=== PATIENT | female | born 2005 | race Two or more races ===

== ENCOUNTER 2025-08-13 17:19 | Observation (INO) | payer MEDICAID, SELFPAY ==
[2025-08-13] VITALS (28 sets, daily range): BP systolic 121; BP diastolic 80; PULSE 76–95; RESP 20–98; TEMP 36.9; O2SAT 94–100; BMI 28.8
[2025-08-13 18:12] LABS: ROM Kit Exp Date# 01/18/28; ROM Kit Lot # 58104371; ROM Swab Mixed By: ASTOA7; Swb Mxed in Solvent 1 min? Yes
[2025-08-13 18:13] LABS: Rupture of Fetal Membranes Negative (Negative)
== END 2025-08-13 20:10 | disposition home or self-care (01) ==
PROVIDERS: Admitting Provider Obstetrics & Gynecology; Visit Provider Obstetrics & Gynecology
DX: O47.1 False labor at or after 37 completed weeks of gestation (principal); Z3A.39 39 weeks gestation of pregnancy
CPT/HCPCS: 59025; 59899; 84112

== ENCOUNTER 2025-08-18 23:46 | Inpatient (IN) | payer MEDICAID, SELFPAY ==
[2025-08-18 23:53] VITALS: BP 122/78; PULSE 112; RESP 18; RESP 98; TEMP 36.7; BMI 26.9
[2025-08-19] VITALS (137 sets, daily range): BP systolic 86–166; BP diastolic 50–88; PULSE 57–132; RESP 15–20; TEMP 36.6–37.2; O2SAT 82–100; BMI 26.9
--- NOTE | 2025-08-19 00:30 | XR_ITS ---
Examination: Complete OB ultrasound greater than 14 weeks Date and time of exam: August 19, 2025, 0059 hours INDICATIONS: Labor evaluation Findings: Viable intrauterine single fetus with single amniotic sac presentation cephalic Cardiac motion 137 bpm Placenta anterior maternal right grade 3 Three-vessel umbilical cord Amniotic fluid index 1.8 cm spine anterior. Cervix 3.7 cm Ovaries obscured by the fetus. Composite estimated gestational age based on BPD, head circumference, abdominal circumference, femur length is 39 weeks 5 days Estimated weight 3897.6 g. Survey of intracranial anatomy, spinal anatomy, abdominal anatomy, four-chamber heart performed with no abnormalities identified. Impression: Viable intrauterine gestation in cephalic presentation.
[2025-08-19] MEDS: RINGERS LACTATED 1000 ML 1,000 ML 100 ML IV ×4 (00:46→11:51)
[2025-08-19 01:04] LABS: Basophils # (Auto) 0.0 Thou/mm3 (0.0-0.2); Basophils % (Auto) 0 % (0-2.5); Eosinophils # (Auto) 0.1 Thou/mm3 (0.0-0.5); Eosinophils % (Auto) 1 % (0-10); Hematocrit 38.5 % (36.0-46.0); Hemoglobin 12.9 g/dL (12.0-16.0); Immature Granulocytes Auto 0.10 Thou/mm3 (0.00-0.00); Lymphocytes # (Auto) 2.1 Thou/mm3 (1.0-4.8); Lymphocytes % (Auto) 22 % (10-50); Mean Corpuscular HGB Conc 33.5 g/dl (31.0-37.0); Mean Corpuscular Hemoglobin 29.7 pg (25.0-35.0); Mean Corpuscular Volume 89 fL (80-100); Monocytes # (Auto) 0.6 Thou/mm3 (0.0-0.8); Monocytes % (Auto) 6 % (0-12); Neutrophils # (Auto) 6.8 Thou/mm3 (1.8-7.7); Neutrophils % (Auto) 70 % (37-80); Nucleated Red Blood Cell # 0.00 Thou/mm3 (0.00-0.00); Nucleated Red Blood Cell % 0 /100 WBC (0); Platelet Count 192 Thou/mm3 (140-440); RDW Standard Deviation 46.1 fL (36.4-46.3); Red Blood Count 4.35 Miln/mm3 (4.00-5.20); White Blood Count 9.6 Thou/mm3 (3.6-11.0)
[2025-08-19 01:44] LABS: Syphilis Nonreactive (Nonreactive)
--- NOTE | 2025-08-19 02:28 | PRELIM_ITS ---
Obstetric ultrasound with Doppler. August 19, 2025 0059 hours Clinical history: No records Comparison: None available at the time of this report. Findings: There is a gravid uterus with a live fetus in cephalic presentation of mean gestational age 39 weeks and 5 days (by biometry). cardiac activity is present at a heart rate of 137 beats per minute. The placenta is anterior to the maternal right in location, maturity grade 3. There is no evidence of placenta previa or retroplacental hemorrhage. There is oligohydramnios (GINI = 1.8 cm). Estimated weight is 3898 grams. No abnormalities by Doppler. The cervix measures 3.7 cm, closed. Impression: Gravid uterus with a single live fetus in cephalic presentation of mean gestational age 39 weeks 5 days. Oligohydramnios. Please, correlate clinically. Report Electronically Signed By: Dutch Jang 08/19/2025 2:27:18 AM [EST]
[2025-08-19] MEDS: fentaNYL CIT INJ 50 mCg/ML AMP 2ML 100 MCG IVP ×2 (04:00→05:18)
--- NOTE | 2025-08-19 08:36 | ESHP_ITS ---
Documentation for date of: 08/19/25 OB Labor/Induct. HPI History of Present Illness Chief complaint: leaking 2324 : 1 Para: 0 Term pregnancies: 0 pregnancies: 0 Living children: 0 History of Abortions: Spontaneous and Elective: 0 History of Vaginal deliveries: 0 History of sections: No History of : No Date of last menstrual period: 11/08/24 PRUDENCIO: 08/15/25 Gestational Age (weeks): 40 Gestational Age (days): 4 Gestational age based on last menstrual period: 40 Indication for induction: post dates History of present illness: 20-year-old 1 para 0 admitted with complaints of leaking fluid since 2324 and contractions. Patient been followed at [facility] clinic with Dr. Oakes. She reports that she has not had any problems with . Last period November 08, 2024. Estimated due date August 15, 2025. Patient has a history of penicillin she told her allergies she gets a rash. She had her appendix out in 2021. History of oligohydramnios with . Patient is O+, antibody screen negative, RPR nonreactive, rubella, hepatitis B negative, hep C negative, HIV negative, her 1 hour glucose was negative. GBS negative. Denies social habits. And denies existence of chronic illness. History of Present Dating criteria: LMP confirmed by 1st trimester US Adequate Care: Yes Ultrasounds: normal mid trimester US Obstetrical complications: none Medical complications: none Labs Labs: Positive: Rubella Titre, Negative: RPR, Hepatitis B, HIV and Group Beta Strep and Unknown: Chlamydia, Gonorrhea, Herpes Type 1, Herpes Type 2 and Covid-19 Review of Systems Review of Systems Systems Reviewed: All systems reviewed, normal except as documented Past Medical History Surgical History SURGICAL: Negative Section Meds Home Medications and Allergies Home Medications ?Medication ?Instructions ?Recorded ?Confirmed ?Type No Known Home Medications 08/19/2507/06 History Allergies Allergy/AdvReac Type Severity Reaction Status Date / Time Penicillins Allergy Rash Verified 08/19/25 00:44 OB Exam Physical Exam Vital signs: Temp Pulse Resp BP Pulse Ox O2 Del Method 98.7 F 64 18 101/56 L 97 Room Air 08/19/25 04:05 08/19/25 08:35 08/18/25 23:53 08/19/25 08:35 08/19/25 08:32 08/19/25 01:37 Narrative: Alert and oriented. Normal heart rate and rhythm. Lungs clear no wheezes. Gravid abdomen. Gynecoid pelvis. Estimated weight 7 pounds 8 ounces. Vaginal exam admission was 350% -3 vertex. heart rate category 1 with accelerations and moderate variability. Had a complete OB that showed vertex. GINI 1 point. Detailed Labor and Delivery Exam Dilation (cm): 3 Effacement (%): 50 Cervix position: mid station: -3 Consistency: soft Presentation: Vertex Cervical ripeness score: 6 Membranes: ruptured Amniotic fluid: clear Baseline heart rate: 134 monitor accelerations: 15x15 MCC variability: Moderate (11-25) Contraction frequency (min): 2-4 Contraction duration (sec): 60 Tachysystole: No Contraction intensity: Moderate OB Results Labs 08/19/25 00:33 Labs: Short CBC 08/19/25 Range/Units 00:33 WBC 9.6 (3.6-11.0) Thou/mm3 Hgb 12.9 (12.0-16.0) g/dL Hct 38.5 (36.0-46.0) % Plt Count 192 (140-440) Thou/mm3 OB Assessment & Plan Assessment and Plan (1) Normal labor and delivery: Status: Acute Additional Plan Induction method: none Plan: augmentation, anticipate NVD and consult MD leblanc
[2025-08-19] MEDS: ONDANSETRON INJ 2 MG/ML INJ 2 ML 4 MG IVP (08:47)
[2025-08-19] MEDS: OXYTOCIN in NS 30 units 30 UNIT/500 ML BAG IV (09:37)
[2025-08-19 09:39] LABS: Chlamydia trachomatis PCR Negative (Not Detect); Neisseria Gonorrhoeae DNA PCR Negative (Not Detect); Trichomonas Negative (Negative)
--- NOTE | 2025-08-19 13:15 | ESPR_ITS ---
Documentation for date of: 08/19/25 OB Labor Progress Note Pain Control Pain control: tolerating well and epidural Comments: The patient is a 20-year-old 1 P0 with all care uncomplicated with Dr. Oakes at term who presented with ruptured membranes around 2300 last night. She was admitted this morning. The patient had labor epidural placed she is resting comfortably she is ranjana every 2 to 3 minutes she is on 5 milliu nits of Pitocin. Baby is reactive category 1. Patient's last exam by the RN was about 30 minutes ago she is 590 and -2. Pelvic Exam Dilation (cm): 5 Effacement (%): 90 station: -2 Amniotic membrane status: Leaking Contractions Monitor mode: Internal Contraction frequency: 1.5-3 Contraction pattern: Tetanic Contraction intensity: Strong Status status: Category l Assessment and Plan Pitocin rate (mU/min): 5 Assessment: induction ongoing Plan OB labor note: continuous present management
[2025-08-19] MEDS: MINERAL OIL 30 ML UDC TOP (15:20)
[2025-08-19] MEDS: OXYTOCIN in NS 20 units 20 UNIT/1,000 ML BAG 125 UNIT IV (15:25)
[2025-08-19] MEDS: BENZO/LANO/ALOE (Dermoplast) 60 GM CAN 1 SPRAY TOP (17:01)
[2025-08-19] MEDS: IBUPROFEN TAB 400 MG TABLET 800 MG PO (17:02)
--- NOTE | 2025-08-19 20:20 | PD.LDDELS ---
Data ([place]) Data Hx Section: No Maternal Blood Type: O Pos Rubella Titre: Positive RPR: Non-reactive Labs: Negative: RPR, Hepatitis B, HIV, Chlamydia, Gonorrhea and Group Beta Strep : 1 Term: 0 : 0 Livin Abortions: Spontaneous & Theraputic: 0 Delivery Data ([place]eller) Labor Data Initiation of labor: Augmentation Induction/Augmentation Agent: Pitocin ROM date: 08/18/25 ROM time: 11:27 Amniotic membrane rupture type: Spontaneous Amniotic fluid description: Clear Delivery Data EDC: 08/15/25 EDC calculated by:: LMP/early US confirmation Date of arrival to unit: 08/19/25 Onset of labor date: 08/19/25 Onset of labor time: 08:30 Complete dilation date: 08/19/25 Complete dilation time: 14:29 [place] delivery date: 08/19/25 [place] delivery time: 15:19 Gestational age (weeks): 40 Gestational age (days): 4 Placenta delivery date: 08/19/25 Placenta delivery time: 15:24 Stage 1 total time: Labor - Stage 1 Duration 5 hours and 59 minutes Delivered by: Mellissa Medina ([facility]) Delivery nurse: Eric [place] nurse: Viral LIGHT RN Educational Recruiter at delivery: Yes Support person(s) at delivery: SISTER Other staff at delivery: Lionel GRAYSON rn Delivery Method Delivery method: Normal Vaginal Delivery Presentation: Vertex position: OA Anesthesia Type Anesthesia Type: Epidural Delivery Room Medications Delivery room medications: Pitocin 20 u IV Placenta Placenta delivery description: Spontaneous Cord blood sent to lab: Yes cord blood collection: Cord Blood Type Episiotomy Episiotomy description: None Lacerations #1: Perineal: 1st degree Perineal repair Sutures used for repair: other (2-0 chromic) EBL Estimated blood loss (ml): 150 Umbilical Cord cord description: 3 Vessels Additional Procedures The patient is a 20-year-old G1, P0 presented to labor and delivery at 40-4/7 weeks with leaking membranes. She was admitted by Guerline WOO the morning of 08/19/2025, and her care was turned [facility] to [facility] on 08/19/2025. Patient was 3 to 4 cm at the time and had recently had and epidural placed. Pitocin augmentation was begun and an IUPC was in place. When I rounded on the patient around 12:30 in the afternoon, she was 5 cm dilated 90% effaced with a -2 station. The patient rapidly went on to progress to complete over the next hour and had her epidural bolused as she was feeling a lot of pressure. She labored down for approximately 20 minutes and then began pushing . She pushed very effectively for approximately 25 minutes delivering a liveborn male at 1519. Findings: Liveborn male in the LAYLA presentation with no nuchal cord and with light meconium. Apgars were 8 and 9. Weight was 8 pounds 4 ounces. As the baby was vigorous at , the baby was placed right on the mother's chest. Delayed cord clamping was performed for 2 minutes. The cord was then clamped and cut. Cord gases's were saved. Cord blood was collected. The baby was then handed off to the waiting pediatric staff. Dr. Horne was present at delivery secondary to some decelerations with pushing. The placenta was spontaneous, complete, and grossly normal delivering 5 minutes after the baby delivered at 1524. There was a velamentous insertion of the umbilical cord. Some calcifications were present otherwise a normal placenta was noted. The patient sustained a first-degree perineal laceration repaired in a standard fashion using 2-0 chromic. Complications were none. Condition both mom and were in stable condition in the delivery room. EBL was 150 cc. Complications Complications: None [place] Data ([place]eller) [place] Data order: 1 [place]'s gender: Male weight (gms): 3730 g Weight (pounds): 8 lbs and 3.6 ozs 1 minute: 8 5 minutes: 9
[2025-08-20 03:43] VITALS: BP 95/66; PULSE 80; RESP 16; TEMP 36.8; O2SAT 99
[2025-08-20 06:02] LABS: Basophils # (Auto) 0.0 Thou/mm3 (0.0-0.2); Basophils % (Auto) 0 % (0-2.5); Eosinophils # (Auto) 0.0 Thou/mm3 (0.0-0.5); Eosinophils % (Auto) 0 % (0-10); Hematocrit 31.6 % (36.0-46.0); Hemoglobin 10.6 g/dL (12.0-16.0); Immature Granulocytes Auto 0.10 Thou/mm3 (0.00-0.00); Lymphocytes # (Auto) 2.0 Thou/mm3 (1.0-4.8); Lymphocytes % (Auto) 15 % (10-50); Mean Corpuscular HGB Conc 33.5 g/dl (31.0-37.0); Mean Corpuscular Hemoglobin 30.5 pg (25.0-35.0); Mean Corpuscular Volume 91 fL (80-100); Monocytes # (Auto) 0.7 Thou/mm3 (0.0-0.8); Monocytes % (Auto) 5 % (0-12); Neutrophils # (Auto) 10.5 Thou/mm3 (1.8-7.7); Neutrophils % (Auto) 79 % (37-80); Nucleated Red Blood Cell # 0.00 Thou/mm3 (0.00-0.00); Nucleated Red Blood Cell % 0 /100 WBC (0); Platelet Count 152 Thou/mm3 (140-440); RDW Standard Deviation 48.2 fL (36.4-46.3); Red Blood Count 3.47 Miln/mm3 (4.00-5.20); White Blood Count 13.3 Thou/mm3 (3.6-11.0)
--- NOTE | 2025-08-20 08:03 | ESPR_ITS ---
Subjective Subjective Interval history: No complaints of pain. Bonding and breast-feeding Exam Vital Signs Temp Pulse Resp BP Pulse Ox O2 Del Method 98.3 F 80 16 95/66 99 Room Air 08/20/25 03:43 08/20/25 03:43 08/20/25 03:43 08/20/25 03:43 08/20/25 03:43 08/20/25 03:43 Narrative Exam Vital signs stable afebrile. Breasts are soft. Fundus firm below umbilicus. Perineum intact no swelling. Small lochia. Uterus well involuted. Below umbilicus. 2+ DTRs Objective Labs 08/20/25 04:48 Labs: Laboratory Results - last 24 hr 08/19/25 08/20/25 03:43 04:48 WBC 13.3 H RBC 3.47 L Hgb 10.6 L D Hct 31.6 L MCV 91 MCH 30.5 MCHC 33.5 RDW Std Deviation 48.2 H Plt Count 152 D Neut % (Auto) 79 Lymph % (Auto) 15 [place] % (Auto) 5 Eos % (Auto) 0 Baso % (Auto) 0 Neut # (Auto) 10.5 H Lymph # (Auto) 2.0 [place] # (Auto) 0.7 Eos # (Auto) 0.0 Baso # (Auto) 0.0 Immature Gran # (Auto) 0.10 H Absolute Nucleated RBC 0.00 Immature Gran % 1 H Nucleated RBC % 0 Chlam trachomat DNA PCR Negative N.gonorrhoeae DNA (PCR) Negative Trichomonas DNA Probe Negative Assessment & Plan Problem List (1) Normal labor and delivery: Status: Acute Assessment Comment Assessment comment: 24 hr pp Plan Comment Plan Comment: Discharge home with baby. Continue vitamins and iron. Tylenol ibuprofen for pain. Discussed danger signs symptoms and ER precautions. I discussed signs symptoms of infection. Discussed wound care. Schedule appointment at [facility] for visit 3 weeks Time Spent With Patient Time: Total time spent is greater than 50% in coordination of care (as documented) at patient's floor/unit and/or counseling patient:
--- NOTE | 2025-08-20 08:06 | ESDS_ITS ---
DS: Providers Provider Date of admission: 08/19/25 00:24 Primary care physician: Physician No Primary/Family Admitting Provider: Checo Lorenzana MD Attending Provider on Admission: Guerline Segura CNM Attending Provider on DC: Guerline Segura CNM Discharging Provider: Guerline Segura CNM Summary/Hosp Course Brief History: 20-year-old 1 para 0 admitted with complaints of leaking fluid since 2324 and contractions. Patient been followed at [facility] with Dr. Oakes. She reports that she has not had any problems with . Last period November 08, 2024. Estimated due date August 15, 2025. Patient has a history of penicillin she told her allergies she gets a rash. She had her appendix out in 2021. History of oligohydramnios with . Patient is O+, antibody screen negative, RPR nonreactive, rubella, hepatitis B negative, hep C negative, HIV negative, her 1 hour glucose was negative. GBS negative. Denies social habits. And denies existence of chronic illness. Peripartum Data Delivery Method: Normal Vaginal Delivery Episiotomy Description: None Laceration Description: yes (2nd perineal) complications: none Time Spent with Patient Time attestation: Total time spent providing and/or coordinating discharge services: Exam Vital Signs Temp Pulse Resp BP Pulse Ox O2 Del Method 98.3 F 80 16 95/66 99 Room Air 08/20/25 03:43 08/20/25 03:43 08/20/25 03:43 08/20/25 03:43 08/20/25 03:43 08/20/25 03:43 Discharge Plan Plan Patient Disposition: HOME (Self Care) Patient condition on transfer: Stable Prescriptions/Referrals Prescriptions/Med Rec: No Action No Known Home Medications Referrals: No Primary/Family,Physician [Primary Care Provider] Patient/Caregiver Discharge Instructions Discharge Activity: resume usual activities Print Language: Azeri Activity Restrictions/Additional Instructions: Discharge home with baby. Continue vitamins and iron. Tylenol ibuprofen for pain. Discussed danger signs and symptoms and ER precautions. And discussed signs symptoms of infection. Discussed wound care and comfort measures for first-degree perineal laceration. Schedule appointment in 3 weeks at [facility] for visit Stand Alone Forms: Angela Award Info., Patient Portal Info Letter Discharge Order Discharge Orders: Discharge (Routine); Ordered 08/20/25 Ordered By: Guerline Segura Planned Discharge Date 08/20/25
[2025-08-20 08:10] VITALS: BP 95/66; PULSE 96; RESP 18; TEMP 36.9; O2SAT 98
[2025-08-20 11:15] VITALS: BP 105/70; PULSE 84; RESP 17; TEMP 36.8; O2SAT 99
[2025-08-20] MEDS: INFLUENZA VIRUS QUADRIVALENT 0.5 ML SYRINGE IMi (15:20)
[2025-08-20] MEDS: DIPHTH,PERTUSS(ACELL),TET VAC 0.5 ML SYR- ADULT IMi (16:26)
== END 2025-08-20 18:00 | disposition home or self-care (01) | DRG 560 ==
LOC: S4SX 08-19 16:14 → S4NX 08-19 17:38
PROVIDERS: Obstetrics & Gynecology; Admitting Provider Obstetrics & Gynecology; Visit Provider Advanced Practice Midwife
DX: O42.02 Full-term premature rupture of membranes, onset of labor within 24 hours of rupture (principal); O48.0 Post-term pregnancy; O43.123 Velamentous insertion of umbilical cord, third trimester; O70.0 First degree perineal laceration during delivery; Z3A.40 40 weeks gestation of pregnancy; Z37.0 Single live birth; Z87.59 Personal history of other complications of pregnancy, childbirth and the puerperium; Z23 Encounter for immunization; Z88.0 Allergy status to penicillin
CPT/HCPCS: 36415; 59025; 59409; 59899; 76805; 84112; 85025; 86780; 86850; 86900; 86901; 87491; 87591; 87661; 90686; 90715; 94762; J2405; J2590; J2795; J3010; J7120; A9270; J9060